=== PATIENT | female | born 1990 | race African-American/Black ===

== ENCOUNTER 2017-09-08 03:00 | Inpatient (IN) | payer OTHER ==
[2017-09-08] MEDS ORDERED: BUTORPHANOL TARTRATE 1 MG/ML VIAL IVPB ONE (03:46)
[2017-09-08] MEDS ORDERED: PROMETHAZINE HCL 25 MG/1 ML VIAL IVPUSH ONE (03:46)
[2017-09-08] MEDS ORDERED: BUTORPHANOL TARTRATE 1 MG/ML VIAL ONE ×2 (03:51)
[2017-09-08] MEDS ORDERED: PROMETHAZINE HCL 25 MG/1 ML VIAL ONE (03:52)
--- NOTE | 2017-09-08 03:56 | HP ---
Past Medical History - Primary Care Physician PCP:: Esme Tovar - Admission Chief Complaint: 27 yrs [id number] , 39.5/7 weeks gestation, onset LP since 12.00AM. care at [facility] . History of Present Illness: pncourse [id number] lbs wt gain work Up : B pos, Hbsag neg, Rpr nr, Hiv neg, Rubella immune , Cf neg, Sickle negm gc/ct neg , Quantiferon neg, 1 hr Gtt 135, GBS neg urine drug screen pos for cannabolos MFM Dr Townsend . serial grwoth sono done, normal, reviewed . 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. g2 8lb at [facility] Infectious Disease: Yes: STD's (h/o rx for chlamydia in past) Psych: Yes: Other (denies) - Past Surgical History Past Surgical History: Yes: None Hx Myomectomy: No Hx Transabdominal Cerclage: No - Smoking History Have you smoked in the past 12 months: No - Alcohol/Substance Use Hx Alcohol Use: No History of Substance Use: reports: Marijuana (01/06/17 urine drug tox pos . pt states she stopped) Home Medications - Allergies Allergies/Adverse Reactions: Allergies Allergy/AdvReac Type Severity Reaction Status Date / Time shellfish derived Allergy Verified 09/08/17 03:37 - Home Medications Home Medications: Ambulatory Orders Vit/Iron Fum/Folic AC [ Tablet] 1 each PO DAILY 09/08/17 Ranitidine HCl [Zantac] 150 mg PO HS 09/08/17 Physical Exam - Maternity Vital Signs: Selected Entries 09/08/17 04:25 Temperature 98.0 F Pulse Rate 92 H Respiratory 18 Rate Blood Pressure 108/78 Weight 230 lb Constitutional: Yes: Moderate Distress Eyes: Yes: WNL HENT: Yes: WNL Neck: Yes: WNL Cardiovascular: Yes: WNL Lungs: Clear to auscultation Breast(s): Yes: WNL - Abdominal Exam/OB Fundal Height: 40 Number of Fetuses: Single Presentation: Vertex Contractions: Yes Regularity: Regular Heart Rate (range): `140-150 Heart Rate Location: [facility] Category: I Accelerations: Uniform - Vaginal Exam/OB Vaginal Bleediing: No Speculum Exam: No Dilatation (cm): 7 Effacement (%): 90 Amniotic Membrane Status: Intact Presentation: Vertex/Position (exam at 3.25 am) Station: -2 - Physical Exam Musculoskeletal: Yes: WNL Extremities: Yes: WNL. No: Calf Tenderness Edema: Yes Edema: LLE: 1+, RLE: 1+ Integumentary: Yes: Tattoos Deep Tendon Reflex Grade: Normal +2 Psychiatric: Yes: WNL, Alert, Oriented - Labs Lab Results: Laboratory Tests 09/08/17 09/08/17 09/08/17 04:00 04:00 04:00 WBC 11.4 H RBC 4.04 Hgb 12.5 Hct 37.1 Plt Count 241 Neutrophils % 71.0 Lymphocytes % 21.7 Monocytes % 6.5 Eosinophils % 0.5 PT with INR 10.10 INR 0.89 PTT (Actin FS) 26.3 L Sodium 137 Potassium 3.6 Chloride 103 Carbon Dioxide 23 BUN 11 Creatinine 0.7 Random Glucose 228 H Opiates Screen Methadone Screen Barbiturate Screen Phencyclidine Screen Ur Amphetamines Screen MDMA (Ecstasy) Screen Benzodiazepines Screen Cocaine Screen U Marijuana (THC) Screen 09/08/17 05:30 WBC RBC Hgb Hct Plt Count Neutrophils % Lymphocytes % Monocytes % Eosinophils % PT with INR INR PTT (Actin FS) Sodium Potassium Chloride Carbon Dioxide BUN Creatinine Random Glucose Opiates Screen Negative Methadone Screen Negative Barbiturate Screen Negative Phencyclidine Screen Negative Ur Amphetamines Screen Negative MDMA (Ecstasy) Screen Negative Benzodiazepines Screen Negative Cocaine Screen Negative U Marijuana (THC) Screen Negative Problem List - Problems (1) with 39 completed weeks gestation Code(s): Z3A.39 - 39 WEEKS GESTATION OF (2) Labor established Code(s): BVQ1177 - (3) Obesity (BMI 35.0-39.9 without comorbidity) Code(s): E66.9 - OBESITY, UNSPECIFIED Assessment/Plan 27 yrs , 39.5 weeks in active lbor , gbs neg . Stadol 2mg + phenrgan for labor analgesia at 4.00 AM given plan vag del
[2017-09-08] MEDS ORDERED: DEXTROSE 5%-LACTATED RINGERS 1,000 ML IV SCH (04:00)
[2017-09-08] MEDS ORDERED: OXYTOCIN 20 UNITS in 0.9% NS 20 UNIT/1,000 ML INFUS.BAG IV ONE ×2 (04:03→07:09)
[2017-09-08 04:34] VITALS: BMI 34.9
[2017-09-08 04:35] LABS: BASO % 0.3 % (0-2.0); EOS % 0.5 % (0-4.5); HEMATOCRIT 37.1 % (32.4-45.2); HEMOGLOBIN 12.5 GM/dL (10.7-15.3); LYMPH % 21.7 % (8-40); MCHC 33.8 g/dl (32.0-36.0); MEAN CELL VOLUME 91.6 fl (80-96); MONO % 6.5 % (3.8-10.2); PLATELET COUNT 241 K/MM3 (134-434); RBC 4.04 M/mm3 (3.60-5.2); RDW 13.2 % (11.6-15.6); WHITE BLOOD COUNT 11.4 K/mm3 (4.0-10.0)
[2017-09-08 04:37] LABS: INR 0.89 (0.82-1.09); PROTHROMBIN TIME (PATIENT) 10.1 SEC (9.98-11.88)
[2017-09-08 04:40] LABS: ACTIVATED PTT 26.3 SECONDS (26.9-34.4)
[2017-09-08 04:44] LABS: ANION GAP 11 (8-16); BLOOD UREA NITROGEN 11 mg/dL (7-18); CHLORIDE 103 mmol/L (98-107); CO2 23 mmol/L (21-32); CREATININE 0.7 mg/dL (0.55-1.02); GLUCOSE,RANDOM 228 mg/dL (74-106); POTASSIUM 3.6 mmol/L (3.5-5.1); SODIUM 137 mmol/L (136-145)
[2017-09-08] MEDS: OXYTOCIN 20 UNITS in 0.9% NS 20 UNIT/1,000 ML INFUS.BAG IV SCH ×2 (05:20→07:13)
[2017-09-08 06:09] LABS: COCAINE, UR NEGATIVE ng/ml (CUTOFF=300); METHADONE, UR NEGATIVE ng/ml (CUTOFF=300); OPIATES, URI NEGATIVE ng/ml (CUTOFF=300); PHENCYCLIDINE,URINE NEGATIVE ng/ml (CUTOFF=25); URINE AMPHETAMINES NEGATIVE ng/ml (CUTOFF=500); URINE BARBITURATES NEGATIVE ng/ml (CUTOFF=200); URINE BENZODIAZEPINES NEGATIVE ng/ml (CUTOFF=200)
[2017-09-08] MEDS ORDERED: BISACODYL 10 MG SUPP.RECT RC PRN (06:37)
[2017-09-08] MEDS ORDERED: WITCH HAZEL 50% (TUCKS) 40 PAD/JAR PAD TP PRN (06:37)
[2017-09-08] MEDS ORDERED: METHYLERGONOVINE MALEATE 0.2 MG/1 ML AMP IM PRN (06:37)
[2017-09-08] MEDS ORDERED: BENZOCAINE 28 GM HEMORRHOIDAL OINTMENT TP PRN (06:37)
[2017-09-08] MEDS ORDERED: BENZOCAINE 20% 57 GM BOTTLE TP PRN (06:37)
[2017-09-08] MEDS ORDERED: oxyCODONE HCL 5 MG TABLET PO PRN (06:37)
--- NOTE | 2017-09-08 07:01 | PN ---
Delivery - Delivery Vaginal Delivery: No Problems, Spontaneous Type of Anesthesia: None Episiotomy/Laceration: None EBL (cc): 300 (st cath 200 ml urine harley color ) Delivery, Single - Stages of Labor Date 1st Stage Initiatied: 09/08/17 Time 1st Stage Initiated: 00:00 Date 2nd Stage Initiated: 09/08/17 Time 2nd Stage Initiated: 05:05 Date of Delivery: 09/08/17 Time of Delivery: 05:13 Time Placenta Delivered: 05:20 Placenta: Yes: Spontaneous, Uterine Exploration - Condition of Infant Pyridine Operator/Traffic Rate Computer Present: No Gender: Male Weight: 7 lb 6 oz Position: Left, OA Total Hours ROM (Hrs/Mins): 15MIN - 1 Minute Total Score: 9 5 Minutes Total Score: 9 - Feeding Plan Initial Plan: Elected not to breastfeed exclusively throughout hospitalization Remarks - Remarks Remarks: 27 yrs 39.5 weeks gestation pnc at [facility] , GBS neg, admitted in labor Intrapartum course uneventful iv stadol 2 mg + phenrgan 25 mg for labor analgesia was given
[2017-09-08] MEDS ORDERED: oxyCODONE HCL 5 MG TABLET ONE (07:40)
[2017-09-08] MEDS: FERROUS SO4 325 MG TABLET (FP) PO SCH ×2 (09:42→17:36)
[2017-09-08] MEDS: PRENATAL VITAMINS W/ FOLIC ACID TABLET (FP) PO SCH (09:42)
[2017-09-08] MEDS: ACETAMINOPHEN 325 MG TABLET (FP) PO PRN ×3 (13:11→21:39)
[2017-09-08] MEDS: IBUPROFEN 600 MG TABLET (FP) PO PRN ×3 (13:19→21:38)
--- NOTE | 2017-09-09 05:29 | PN ---
Post Progress Note - Subjective Subjective: 27 yo Para 3 status post normal vaginal delivery, seen and evaluated. Doing well. Post Day: 1 Type of Delivery: Vital Signs: Vital Signs Temperature 98.4 F 09/09/17 01:24 Pulse Rate 80 09/09/17 01:24 Respiratory Rate 20 09/09/17 01:24 Blood Pressure 120/70 09/09/17 01:24 O2 Sat by Pulse Oximetry (%) 99 09/08/17 09:01 Breast Exam: Yes: Soft Uterus: Yes: Fundus Firm Abdomen/GI: Yes: Abdomen soft, Tolerating PO Lochia: Yes: Rubra Lochia, amount: Moderate Extremities: Yes: Calves non-tender Activity: Ambulating - Labs Labs: CBC WBC 11.4 K/mm3 (4.0-10.0) H 09/08/17 04:00 RBC 4.04 M/mm3 (3.60-5.2) 09/08/17 04:00 Hgb 12.5 GM/dL (10.7-15.3) 09/08/17 04:00 Hct 37.1 % (32.4-45.2) 09/08/17 04:00 MCV 91.6 fl (80-96) 09/08/17 04:00 MCH 31.0 pg (25.7-33.7) 09/08/17 04:00 MCHC 33.8 g/dl (32.0-36.0) 09/08/17 04:00 RDW 13.2 % (11.6-15.6) 09/08/17 04:00 Plt Count 241 K/MM3 (134-434) 09/08/17 04:00 MPV 8.0 fl (7.5-11.1) 09/08/17 04:00 Neutrophils % 71.0 % (42.8-82.8) 09/08/17 04:00 Lymphocytes % 21.7 % (8-40) 09/08/17 04:00 Monocytes % 6.5 % (3.8-10.2) 09/08/17 04:00 Eosinophils % 0.5 % (0-4.5) 09/08/17 04:00 Basophils % 0.3 % (0-2.0) 09/08/17 04:00 Problem List - Problems (1) Status post normal vaginal delivery Code(s): NQC2547 - Assessment/Plan Status post normal vaginal delivery Stable Continue routine care
[2017-09-09] MEDS: FERROUS SO4 325 MG TABLET (FP) PO SCH ×2 (08:29→17:06)
[2017-09-09 09:03] LABS: BASO % 0.4 % (0-2.0); EOS % 0.6 % (0-4.5); HEMATOCRIT 34.6 % (32.4-45.2); HEMOGLOBIN 11.8 GM/dL (10.7-15.3); LYMPH % 23.9 % (8-40); MCH 31.2 pg (25.7-33.7); MCHC 34.1 g/dl (32.0-36.0); MEAN CELL VOLUME 91.4 fl (80-96); MEAN PLT VOLUME 7.5 fl (7.5-11.1); MONO % 6.7 % (3.8-10.2); NEUT % 68.4 % (42.8-82.8); PLATELET COUNT 256 K/MM3 (134-434); RBC 3.79 M/mm3 (3.60-5.2); RDW 13.4 % (11.6-15.6); WHITE BLOOD COUNT 12.6 K/mm3 (4.0-10.0)
[2017-09-09] MEDS: PRENATAL VITAMINS W/ FOLIC ACID TABLET (FP) PO SCH (09:40)
[2017-09-09] MEDS ORDERED: SENNOSIDES/DOCUSATE COMBO (SENNA PLUS) TABLET (UD) PO PRN (22:00)
--- NOTE | 2017-09-10 07:32 | PN ---
Progress Note (short form) - Note Progress Note: ppd 2 no c/o ,voids ok, no excess vaginal bleeding CBC, BMP 09/09/17 07:45 09/08/17 04:00 Last Vital Signs Temp Pulse Resp BP Pulse Ox 98.6 F 74 20 112/54 99 09/09/17 20:58 09/09/17 20:58 09/09/17 20:58 09/09/17 20:58 09/08/17 09:01 uterus firm, non tender, lochia mild no calf tenderness plan ambulate,, s/c home, rtc 4 weeks
[2017-09-10] MEDS: FERROUS SO4 325 MG TABLET (FP) PO SCH (08:21)
[2017-09-10] MEDS: PRENATAL VITAMINS W/ FOLIC ACID TABLET (FP) PO SCH (09:36)
[2017-09-10 10:42] VITALS: BP 120/87; PULSE 77; TEMP 98.3
--- NOTE | 2017-09-10 11:28 | DS ---
Physical Exam-VETERINARY SURGEON Vital Signs: Vital Signs Temperature 98.3 F 09/10/17 09:00 Pulse Rate 77 09/10/17 09:00 Respiratory Rate 20 09/10/17 09:00 Blood Pressure 120/87 09/10/17 09:00 O2 Sat by Pulse Oximetry (%) 99 09/08/17 09:01 Constitutional: Yes: Well Nourished Eyes: Yes: WNL HENT: Yes: WNL, Normocephalic Neck: Yes: WNL Cardiovascular: Yes: WNL Respiratory: Yes: WNL Gastrointestinal: Yes: WNL, Normal Bowel Sounds, Soft. No: Distention ...Rectal Exam: Yes: WNL Renal/: Yes: WNL ....Post : Yes: Uterus firm, Uterus non-tender, Moderate lochia rubra ( perineum intact) Breast(s): Yes: WNL Musculoskeletal: Yes: WNL Extremities: Yes: WNL. No: Delayed Capillary Refill Edema: Yes Edema: LLE: 1+, RLE: 1+ Integumentary: Yes: WNL, Tattoos Wound/Incision: Yes: Clean/Dry Neurological: Yes: WNL, Alert, Oriented, Unresponsive Psychiatric: Yes: WNL, Alert, Oriented Labs: CBC, BMP 09/09/17 07:45 09/08/17 04:00 Delivery - Delivery Vaginal Delivery: No Problems, Spontaneous Type of Anesthesia: None Episiotomy/Laceration: None EBL (cc): 300 (st cath 200 ml urine harley color ) Delivery, Single - Stages of Labor Date 1st Stage Initiatied: 09/08/17 Time 1st Stage Initiated: 00:00 Date 2nd Stage Initiated: 09/08/17 Time 2nd Stage Initiated: 05:05 Date of Delivery: 09/08/17 Time of Delivery: 05:13 Time Placenta Delivered: 05:20 Placenta: Yes: Spontaneous, Uterine Exploration - Condition of Infant Biology Lecturer/Administrative Aide Present: No Gender: Male Weight: 7 lb 6 oz Position: Left, OA Total Hours ROM (Hrs/Mins): 15MIN - 1 Minute Total Score: 9 5 Minutes Total Score: 9 - [place] Feeding Plan Initial Plan: Elected not to breastfeed exclusively throughout hospitalization Remarks - Remarks Remarks: 27 yrs 39.5 weeks gestation pnc at [facility] , GBS neg, admitted in labor Intrapartum course uneventful iv stadol 2 mg + phenrgan 25 mg for labor analgesia was given pp course stable. discharge today Discharge Summary Reason For Visit: LABOR ADMIT Current Active Problems Labor established (Acute) Obesity (BMI 35.0-39.9 without comorbidity) (Acute) with 39 completed weeks gestation (Acute) Status post normal vaginal delivery (Acute) Condition: Stable - Instructions Diet, Activity, Other Instructions: Post Instructions DIET: Continue good diet high in protein, calcium, and iron rich foods. Drink at least eight (8) glasses of water daily in addition to other fluids. ___ Regular diet _ MEDICATIONS: Continue vitamins and iron as previously directed. Motrin and Tylenol may be taken for minor discomfort. ACTIVITY: Mild to moderate exercise may be started in two (2) weeks. Take frequent rest periods. Resume normal activity after six (6) week check up. WOUND CARE OF OPERATIVE SITE: Continue use of perineal bottle until vaginal discharge stops. Keep area clean. Shower daily. Keep abdominal wound dry. Report any drainage or redness to physician. Tub baths, tampons and douches are not permitted for [address] Breast feeding & or Bottle feeding BREAST CARE: (For those that are not breast feeding): If engorgement occurs: Wear tight fitting bra. Take Tylenol or Motrin for pain. Apply cold packs (ice in bags to each breast ) FAMILY PLANNING: There are many control alternatives to pursue and they should be discussed at your first office visit. You may resume sexual activity after your six (6) week check up. (Remember, breast feeding is not a contraceptive) NEXT PHYSICIAN APPOINTMENT: Be certain to call for a six (6) week appointment, unless otherwise directed. Call Clinic or got to Emergency Dept if you have any of the following: Heavy vaginal bleeding Painful urination Leg pain Unusual odor noted to vaginal bleeding High fever Red streaking noted on breast return to clinic in 6 weeks. call [facility] for appointment. [phone] Referrals: Esme Tovar MD [Staff Physician] - Disposition: HOME - Home Medications Comprehensive Discharge Medication List: Ambulatory Orders Vit/Iron Fum/Folic AC [ Tablet] 1 each PO DAILY 09/08/17 Ranitidine HCl [Zantac] 150 mg PO HS 09/08/17 Acetaminophen [Tylenol .Regular Strength -] 650 mg PO Q3H PRN tablet 09/09/17 Ibuprofen [Motrin -] 200 mg PO Q4H PRN tablet 09/09/17 Vitamins (Sjr) - 1 tab PO DAILY tablet 09/09/17
== END 2017-09-10 10:30 | disposition home or self-care (01) | DRG 560 ==
LOC: JDEL 03:00 → JLDR 03:30 → J3W 09:02
PROVIDERS: ADMIT Obstetrics & Gynecology; ATTEND Obstetrics & Gynecology
PROC: 10E0XZZ Delivery of Products of Conception, External Approach (ICD-10-PCS; principal; 2017-09-08)
DX: O99.824 Streptococcus B carrier state complicating childbirth (principal); O99.323 Drug use complicating pregnancy, third trimester; F12.10 Cannabis abuse, uncomplicated; O99.213 Obesity complicating pregnancy, third trimester; E66.8 Other obesity; Z68.35 Body mass index [BMI] 35.0-35.9, adult; Z3A.39 39 weeks gestation of pregnancy; Z37.0 Single live birth
CPT/HCPCS: 36415; 59409; 80048; 80307; 82947; 82962; 85025; 85610; 85730; 86593; 86850; 86900; 86901